=== PATIENT | male | born 1990 | race Two or more races ===

== ENCOUNTER → 2020-05-23 | Emergency (ER) | payer OTHER ==
[~2020-05-23] VITALS: Ht 172.7 cm; Wt 77.1 kg
[~2020-05-23] MED LIST: AMOX-CLAV 875-1 EACH PO
== END | disposition home or self-care (01) ==
LOC: ER 18:56
DX: H66.92 Otitis media, unspecified, left ear (principal)

== ENCOUNTER 2020-07-24 10:46 | Outpatient (CLI) | payer OTHER | END 2020-07-24 11:30 | disposition home or self-care (01) | LOC: OFIC 805 10:46 | PROVIDERS: ATTEND Otolaryngology | DX: H66.92 Otitis media, unspecified, left ear (principal) ==